=== PATIENT | female | born 1960 | race Caucasian/White ===

== ENCOUNTER 2016-10-27 08:40 | Emergency (ER) | payer OTHER ==
[~2016-10-27] VITALS: Ht 170.2 cm; Wt 79.9 kg
[~2016-10-27 08:40] MED LIST: AMLODIPINE-BEN1 EACH PO; ANAPROX DS550 M1 PO; CHANTIX0.5 MG PO; CLONAZEPAM0.125 MG PO; CLONAZEPAM1 MG PO; DAILY VALUE1 EACH PO; FLEXERIL10 MG PO; HYDROCODON-ACE1 EAC7 PO; NORCO 5/3251 TABLET PO; NORVASC10 MG PO; ORAJEL MM; PERCOCET 5/31 TABLET PO; PREDNISONE10 MG PO; TRAMADOL HCL50 MG PO; TYLENOL EXTRA500 MG PO; TYLENOL WITH C1 EACH PO; ULTRACET1 TABLET PO; ULTRAM50 MG PO; VALIUM5 MG PO
[2016-10-27] MEDS ORDERED: ULTRAM50 MG PO (10:22)
[2016-10-27 10:54] VITALS: BP 149/87
== END 2016-10-27 10:56 | disposition home or self-care (01) ==
LOC: EME 08:40
DX: M54.5 Low back pain (principal); M25.552 Pain in left hip; M25.551 Pain in right hip; W10.9XXA Fall (on) (from) unspecified stairs and steps, initial encounter; Z96.642 Presence of left artificial hip joint; I10 Essential (primary) hypertension; F17.200 Nicotine dependence, unspecified, uncomplicated
CPT/HCPCS: 72100; 72170; 99281; 99283

== ENCOUNTER 2017-06-30 13:28 | Emergency (ER) | payer OTHER ==
[~2017-06-30] VITALS: Ht 167.6 cm; Wt 75.0 kg
[2017-06-30 16:33] VITALS: BP 139/100
== END 2017-06-30 16:35 | disposition home or self-care (01) ==
LOC: RME 13:28 → EME 13:28 → RME 16:35
DX: S83.92XA Sprain of unspecified site of left knee, initial encounter (principal); M23.42 Loose body in knee, left knee; G89.29 Other chronic pain; I10 Essential (primary) hypertension; F41.9 Anxiety disorder, unspecified; F17.200 Nicotine dependence, unspecified, uncomplicated; W19.XXXA Unspecified fall, initial encounter; Z88.6 Allergy status to analgesic agent; Z88.4 Allergy status to anesthetic agent; Z88.8 Allergy status to other drugs, medicaments and biological substances
CPT/HCPCS: 73564; 93971; 99281; 99283

== ENCOUNTER 2017-10-31 22:12 | Emergency (ER) | payer OTHER ==
[~2017-10-31] VITALS: Ht 167.6 cm; Wt 74.6 kg
[2017-10-31 22:57] LABS: APPEARANCE SL.HAZY ((CLEAR)); BILIRUBIN NEGATIVE; BLOOD NEGATIVE; COLOR AMBER ((YELLOW)); GLUCOSE (STRIP) NEGATIVE; KETONES NEGATIVE; LEUKOCYTES MODERATE; NITRITE POSITIVE; PROTEIN (STRIP) 30; SPECIFIC GRAVITY 1.012 (1.000-1.030)
[2017-10-31 23:05] LABS: BACTERIA RARE /HPF; EPITHELIAL CELLS 2+ /HPF; MUCUS NONE SEEN /LPF; RED BLOOD CELLS 15-20 /HPF (0-5); UCUL ADDED? YES; WHITE BLOOD CELLS TNTC /HPF (0-5)
[2017-10-31 23:07] LABS: HEMATOCRIT 37.2 % (36.0-46.0); HEMOGLOBIN 12.4 G/DL (11.9-15.5); MCH 30.3 PG (29.0-34.0); MCHC 33.3 G/DL (30.0-36.0); PLATELET COUNT 511 K/uL (156-360); RBC DIS.WIDTH-CV 12.6 % (11.8-14.6); RBC DIS.WIDTH-SD 41.6 % (39-53); RED BLOOD COUNT 4.09 M/uL (3.80-5.20); WHITE BLOOD COUNT 7.9 K/uL (4.1-10.2)
[2017-10-31 23:18] LABS: ALBUMIN 4.3 g/dL (3.2-4.8); CHLORIDE 103 mEq/L (99-109); POTASSIUM 4.2 mEq/L (3.7-5.4); SODIUM 143 mEq/L (136-147)
[2017-10-31 23:20] LABS: GLUCOSE 94 mg/dL (70-99)
[2017-10-31 23:22] LABS: TOTAL BILIRUBIN 0.3 mg/dL (0.0-1.0)
[2017-10-31 23:24] LABS: ALKALINE PHOSPHATASE 92 IU/L (3-129); CREATININE 0.7 mg/dL (0.6-1.3); GFR ESTIMATE (CALCULATED) > 59 mL/min/
[2017-10-31 23:25] LABS: AST (GOT) 9 IU/L (2-34); DIRECT BILIRUBIN 0.1 mg/dL (0.0-0.3); UREA NITROGEN (BUN) 15 mg/dL (9-23)
[2017-10-31 23:27] LABS: ALT (GPT) 10 IU/L (3-49); LIPASE 64 U/L (1.0-51.0); TROP-I INTERPRETATION NEGATIVE; TROPONIN-I < 0.01 ng/mL (0.0-0.30)
[2017-11-01] MEDS ORDERED: KEFLEX500 MG PO (01:09)
[2017-11-01] MEDS ORDERED: MECLIZINE HCL25 MG PO (01:09)
[2017-11-01 02:01] VITALS: BP 121/83
== END 2017-11-01 02:02 | disposition home or self-care (01) ==
LOC: EME → EDBD 22:12 → EME 11-01 02:02
DX: R42 Dizziness and giddiness (principal); N30.00 Acute cystitis without hematuria; I10 Essential (primary) hypertension; F41.9 Anxiety disorder, unspecified; F17.200 Nicotine dependence, unspecified, uncomplicated; Z88.4 Allergy status to anesthetic agent; Z88.8 Allergy status to other drugs, medicaments and biological substances
CPT/HCPCS: 70450; 71046; 80048; 80076; 81003; 83690; 84484; 85027; 87077; 87086; 87186; 93005; 99281; 99285; J7030